=== PATIENT | female | born 1945 | race Caucasian/White ===

== ENCOUNTER → 2018-04-11 | Outpatient (CLI) | payer MEDICARE, BC ==
[~2018-04-11] MED LIST: AMLODIPINE BESY10 MG PO; ARICEPT5 MG PO; ATENOLOL50 MG PO; CALCIUM 500+D1 EACH PO; CO Q-10200 MG PO; EXCEDRIN EXTRA1 EAC1 PO; FENOFIBRATE145 MG PO; HYDROCHLOROTHIA25 MG PO; LANSOPRAZOLE15 MG PO; LEVOTHYROXINE50 MCG PO; TIZANIDINE HCL2 M1 PO
--- NOTE | 2018-04-11 14:36 | Diagnostic Imaging Report ---
PROCEDURE:US RETROPERITONEAL ( KIDNEY ). COMPARISON:CT, CT ABDOMEN/PELVIS WO, 06/15/2016, 7:56. INDICATIONS:CHRONIC KIDNEY DISEASE STAGE IV TECHNIQUE: Ma-scale and color sonographic images of the bilateral kidneys and bladder where obtained in transverse and longitudinal planes. FINDINGS: RIGHT KIDNEY: 10.4 cm, cortex 1.3 cm Cysts: 0.8 x 0.8 x 1.0 cm cystic, anechoic exophytic lesion in the inferior pole. Solid masses: None Stones: None Hydronephrosis: None Echogenicity: Normal LEFT KIDNEY: 10.8 cm, cortex 1.3 cm Cysts: 0.7 x 0.6 x 0.6 cm cystic, anechoic lesion in the superior pole Solid masses: None Stones: None Hydronephrosis: Moderate Echogenicity: Increased Bladder: Bilateral ureteral jets are identified. No focal lesions. Prevoid bladder volume 63.4 CC. Postvoid bladder volume 120 CC. CONCLUSION: 1. Normal bilateral renal size. Increased echogenicity of the right left kidney, consistent with medical renal disease. 2. Moderate left hydronephrosis. 3. Bilateral simple renal cysts. 4. No significant postvoid residual. Tai Valero M.D. Dictated by: Tai Valero M.D. on 04/11/2018 at 14:39 Electronically approved by: Tai Valero M.D. on 04/11/2018 at 14:39
--- NOTE | 2018-04-11 14:37 | Diagnostic Imaging Report ---
PROCEDURE:URINARY BLADDER ULTRASOUND COMPARISON:None. INDICATIONS:CHRONIC KIDNEY DISEASE STAGE IV CONCLUSION: Please refer to renal ultrasound performed at the same date and time for full dictated report. Tai Valero M.D. Dictated by: Tai Valero M.D. on 04/11/2018 at 14:40 Electronically approved by: Tai Valero M.D. on 04/11/2018 at 14:40
== END ==
LOC: US 12:54
PROVIDERS: ATTEND Internal Medicine Nephrology
DX: N18.4 Chronic kidney disease, stage 4 (severe) (principal); N13.30 Unspecified hydronephrosis; N28.1 Cyst of kidney, acquired
CPT/HCPCS: 76770; 76857

== ENCOUNTER → 2018-04-25 | Outpatient (CLI) | payer MEDICARE, BC ==
[~2018-04-25] MED LIST changes: +FUROSEMIDE INJ 10 MG/ML 4 ML VIAL ONE
--- NOTE | 2018-04-25 18:40 | Diagnostic Imaging Report ---
Renal Scan with Lasix Washout Clinical information: Crossing vessel and ureteral stricture. 72 F with left renal scarring and frequent UTIs since 2014. Stent placed in Nov 2017 and has not been removed. Comparison: Most recent prior renal scan with Lasix 07/22/2017 Technique: Following intravenous administration of 11 mCi of Tc-99m MAG3, dynamic images of the kidneys in the posterior projection were obtained through 40 minutes. Lasix 40 mg was administered intravenously at 10 minutes post injection of the tracer. Report: Left kidney: Perfusion of the left kidney is prompt. The kidney has a reniform shape with a photopenic area banding across the mid aspect of the kidney horizontally and patchy distribution of tracer throughout the renal parenchyma. Extraction of tracer from the blood pool is normal. Clearance of tracer from the renal parenchyma is prompt. The pelvicalyceal system is not dilated although dilated calices are present in the upper and lower poles. Increased pooling of tracer within is seen in the dilated calices. No net drainage of tracer from the pelvicalyceal system is seen prior to administration of Lasix. Washout of tracer from the pelvicalyceal system following administration of Lasix is rapid with a T-1/2 of 8 minutes (normal less than 15 minutes). No significant stasis of tracer is seen within the left ureter. Right kidney: Perfusion to the right kidney is prompt. The right kidney has a normal reniform shape. Extraction of tracer by the renal parenchyma is normal. Clearance of tracer from the renal parenchyma is prompt. The pelvicalyceal system is not dilated. Physiologic pooling of tracer within the pelvicalyceal system is seen. Drainage of tracer from the pelvicalyceal system is prompt and adequate prior to administration of Lasix. No significant stasis of tracer is seen within the right ureter. Differential renal function: The left kidney contributes 31% of total renal function and the right kidney contributes 69% (normal 43-57%), previously left 38% and right 62%. Impression: 1. Scarring is noted in the mid aspect of the left kidney as well as more diffusely throughout the kidney. The remaining renal parenchyma functions normally. Loss of renal parenchyma accounts for the decreased differential function of 31%. No hydronephrosis is present although dilated calices are noted. No physiologically significant obstruction of the renal collecting system is present. The appearance of the kidney and the washout pattern are unchanged compared to the prior study. The differential renal function has decreased from 38% to 31%, which given spread of 7 percentage points is considered significant. It is likely due to slightly better function in the right kidney that has better drainage compared to the prior study, this being related to the presence of a right ureteral stent that has been in place for several months. 2. The function of the right kidney is generally normal for age. No hydronephrosis is present. No physiologically significant obstruction of the renal collecting system is present. The appearance of the kidney is unchanged. Drainage from the pelvicalyceal system has improved compared to the prior renal scan. The differential renal function has risen from 62% to 69%, likely related to freer drainage with the presence of the ureteral stent. Signed by: Dr. Guerita Mondragon M.D. on 04/25/2018 6:36 PM
== END ==
LOC: NM 13:06
PROVIDERS: ATTEND Urology
DX: N13.5 Crossing vessel and stricture of ureter without hydronephrosis (principal); Q62.11 Congenital occlusion of ureteropelvic junction; N26.9 Renal sclerosis, unspecified
CPT/HCPCS: 78708; A9562; J1940

== ENCOUNTER → 2018-04-27 | Outpatient (CLI) | payer MEDICARE, BC ==
[~2018-04-27] MED LIST changes: -FUROSEMIDE INJ 10 MG/ML 4 ML VIAL ONE
--- NOTE | 2018-04-27 18:19 | Diagnostic Imaging Report ---
PROCEDURE: CT ABDOMEN AND PELVIS WITHOUT CONTRAST TECHNIQUE: The abdomen and pelvis were scanned utilizing a multidetector helical scanner from the diaphragm to the lesser trochanter after the oral administration of water. No IV contrast was administered per physician's request. Coronal and sagittal multiplanar reformations were obtained. COMPARISON: [facility], US, US RETROPERITONEAL ( KIDNEY )., 04/11/2018, 13:32. Patients [facility], CT, CT ABDOMEN/PELVIS WO, 06/15/2016, 7:56. INDICATIONS: LEFT KIDNEY PROBLEMS FINDINGS: ABSENCE OF INTRAVENOUS CONTRAST DECREASES SENSITIVITY FOR DETECTION OF FOCAL LESIONS AND VASCULAR PATHOLOGY. LOWER THORAX: Stable linear opacities in left lower lobe and lingula consistent with scarring. HEPATOBILIARY: No focal hepatic lesions. No biliary ductal dilatation. Gallbladder is unremarkable. SPLEEN: No splenomegaly. PANCREAS: No focal masses or ductal dilatation. ADRENALS: No adrenal nodules. KIDNEYS/URETERS: Right: No renal or ureteral calculi, hydronephrosis, or obstruction. Stable scarring in the posterior interpolar region (series 3, image 62). Stable mostly exophytic 0.9 cm simple cyst in the inferior pole (series 3, image 76). Left: No significant interval change in approximately 6.4 x 4.8 cm lobulated fluid density lesion in the left renal sinus, extending medially into the pelvis (series 3, image 55). Mild caliectasis of upper pole and lower pole calyces (for example series 3, image 47 and 59). Middle calyxes appear dilated (series 3 per image 54). Ureter is normal in caliber. No renal or ureteral calculi. Stable 1.5 cm simple cyst in the anterior interpolar region (series 3, image 50). PELVIC ORGANS/BLADDER: Bladder and uterus are unremarkable. No adnexal masses. PERITONEUM / RETROPERITONEUM: No free air or fluid. LYMPH NODES: No lymphadenopathy. VESSELS: Atherosclerotic calcification of the abdominal aorta and iliac vessels. Prominent atherosclerotic calcification of the origin of the right renal artery. GI TRACT: No bowel dilation or evidence of obstruction. Appendix is identified, and normal in caliber. BONES AND SOFT TISSUES: No aggressive lytic lesions. Soft tissues are grossly unremarkable. IMPRESSION: 1. No significant interval change in 6.4 cm lobulated fluid density lesion in the left renal sinus extending medially into the pelvis since CT dated 06/15/2016. This likely represents a large peripelvic cyst. Although the left middle calyxes appear dilated, it is difficult to distinguish this from the lobulated lesion. Mild caliectasis of the left upper and lower pole calyxes may be due to compression/obstruction rather than true hydronephrosis. Recommend CT urogram if renal function permits. 2. No renal, ureteral, or bladder calculi. No right hydronephrosis, or obstruction. 3. Stable bilateral simple cysts. Tai Valero M.D. Dictated by: Tai Valero M.D. on 04/27/2018 at 18:24 Electronically approved by: Tai Valero M.D. on 04/27/2018 at 18:24
== END ==
LOC: CT 17:07
PROVIDERS: ATTEND Internal Medicine Nephrology
DX: N13.30 Unspecified hydronephrosis (principal)
CPT/HCPCS: 74176

== ENCOUNTER → 2019-05-01 | Outpatient (CLI) | payer MEDICARE, BC ==
[~2019-05-01] MED LIST changes: +FUROSEMIDE INJ 10 MG/ML 4 ML VIAL ONE
--- NOTE | 2019-05-01 19:49 | Diagnostic Imaging Report ---
Renal Scan with Lasix Washout Clinical information: Renal sclerosis. Crossing vessel and ureteral stricture. 72 F with left renal scarring and frequent UTIs since 2015. Stent placed in Nov 2017 and has not been removed. Comparison: Most recent prior renal scan with Lasix 04/25/2018 Technique: Following intravenous administration of 10.8 mCi of Tc-99m MAG3, dynamic images of the kidneys in the posterior projection were obtained through 40 minutes. Lasix 40 mg was administered intravenously at 10 minutes post injection of the tracer. Report: Left kidney: Perfusion of the left kidney is prompt. The kidney has a small reniform shape with a photopenic area banding across the mid aspect of the kidney horizontally and patchy distribution of tracer throughout the renal parenchyma. Extraction of tracer from the blood pool is decreased. Clearance of tracer from the renal parenchyma begins promptly but is not complete by the end of the study. The pelvicalyceal system is not dilated although dilated calices are present in the upper and lower poles. Increased pooling of tracer within is seen in the dilated calices. No net drainage of tracer from the pelvicalyceal system is seen prior to administration of Lasix. Washout of tracer from the pelvicalyceal system following administration of Lasix is barely adequate with a T-1/2 of 15 minutes (normal less than 15 minutes). No significant stasis of tracer is seen within the left ureter. Right kidney: Perfusion to the right kidney is prompt. The right kidney has a small reniform shape. Extraction of tracer by the renal parenchyma is decreased. Clearance of tracer from the renal parenchyma begins promptly and is mostly complete by the end of the study. The pelvicalyceal system is not dilated. No pooling of tracer within the pelvicalyceal system is seen. Drainage of tracer from the pelvicalyceal system is adequate prior to administration of Lasix. No significant stasis of tracer is seen within the right ureter. Differential renal function: The left kidney contributes 33% of total renal function and the right kidney contributes 67% (normal 43-57%), previously left 31% and right 69%. Impression: 1. Scarring is noted in the mid aspect of the left kidney as well as more diffusely throughout the kidney. The overall kidney size is small although unchanged from the prior exam. The remaining renal parenchyma functions suggests some medical renal disease. Loss of renal parenchyma accounts for the decreased differential function of 33%. No hydronephrosis is present although dilated calices are noted. No physiologically significant obstruction of the renal collecting system is present. The appearance of the kidney is unchanged compared to the prior study except that the retention of tracer in the renal parenchyma at the end of the study is greater than on the prior study suggesting tubular dysfunction or hydration status may not be as optimal. The differential renal function is unchanged at 33%, previously 31%. 2. The size and appearance of the right kidney is unchanged compared to the prior study and the overall kidney size is small. No hydronephrosis is present. No physiologically significant obstruction of the renal collecting system is present. Drainage from the pelvicalyceal system remains adequate. The differential renal function is unchanged compared to the prior study, 67%, previously 69%. Signed by: Dr. Guerita Mondragon M.D. on 05/01/2019 7:46 PM
== END ==
LOC: NM 13:28
PROVIDERS: ATTEND Urology
DX: N26.9 Renal sclerosis, unspecified (principal)
CPT/HCPCS: 78708; A9562; J1940